=== PATIENT | male | born 1965 | race Caucasian/White ===

== ENCOUNTER 2023-04-18 13:26 | Emergency (ER) | payer OTHER, SELFPAY ==
[2023-04-18 13:37] VITALS: BP 123/76; PULSE 86; RESP 18; TEMP 36.3; O2SAT 97
--- NOTE | 2023-04-18 13:45 | ED.GENADULT ---
HPI - General Adult General Chief complaint: Weakness Stated complaint: Nausea/Fatigue Source: patient and RN notes reviewed History of Present Illness HPI narrative: 58 yo M presents to urgent care with complaints of nausea and fatigue x 3 days. Pt states his wanted him to come get his heart checked. Denies any fevers, chills, chest pain, SOB, vomiting, diarrhea, diaphoresis, cough, congestion, sore throat, or dizziness. Pt is still able to eat and drink. Patient states he had a negative COVID test yesterday. Related Data Home Medications Medication Instructions Recorded Confirmed atorvastatin 80 mg tablet 80 mg PO DAILY 04/18/23 04/18/23 carvedilol 12.5 mg tablet 12.5 mg PO BID 04/18/23 04/18/23 dulaglutide 3 mg/0.5 mL 3 mg subcut WEEKLY 04/18/23 04/18/23 subcutaneous pen injector (Trulicity) empagliflozin 25 mg tablet 25 mg PO DAILY 04/18/23 04/18/23 (Jardiance) ezetimibe 10 mg tablet (Zetia) 10 mg PO DAILY 04/18/23 04/18/23 finerenone 20 mg tablet (Kerendia) 20 mg PO DAILY 04/18/23 04/18/23 icosapent ethyl 1 gram capsule 2 g PO BID 04/18/23 04/18/23 irbesartan 300 mg tablet 300 mg PO DAILY 04/18/23 04/18/23 metformin 1,000 mg tablet 1,000 mg PO BID 04/18/23 04/18/23 rivaroxaban 2.5 mg tablet (Xarelto) 2.5 mg PO BID 04/18/23 04/18/23 tadalafil 20 mg tablet 20 mg PO PRN PRN Sexual Activity 04/18/23 04/18/23 Allergies Allergy/AdvReac Type Severity Reaction Status Date / Time No Known Allergies Allergy Verified 04/18/23 13:43 Review of Systems Review of Systems: Pertinent positives and pertinent negatives per HPI. PMFSH Comments At the time of my signature, I reviewed and agree with the nursing past medical, surgical, social, and family history. There is no relevant family history pertinent to the patient complaint. Exam Narrative: GENERAL: This is a well-nourished, well-developed patient, in no apparent distress. HEAD: normocephalic, atraumatic. EYES: Sclera clear/white. Vision is grossly intact. EARS: External ears normal, auditory canals clear and without drainage, TMs normal without perforation. Hearing grossly intact. NOSE: External nose normal with no obvious nasal discharge, nares without redness, no rhinorrhea. THROAT: Mucous membranes moist, posterior pharynx clear. NECK: Neck supple, non-tender without lymphadenopathy, masses or thyromegaly. CARDIOVASCULAR: Regular rate and rhythm without murmurs, gallops, or rubs. RESPIRATORY: Clear to auscultation. Breath sounds equal bilaterally. No wheezes, rales, or rhonchi. GASTROINTESTINAL: Abdomen soft, non-tender, nondistended. Bowel sounds are active. No hepato-splenomegaly, or palpable masses. No guarding. SKIN: warm, intact with no suspicious lesions or rash, good texture and turgor. NEURO: awake, alert, and oriented to person, place and time. There were no obvious focal neurologic abnormalities. Course Course Level of Care: Express Care Visit Vital Signs Vital signs: Vital Signs Oxygen Delivery Room Air 04/18/23 13:35 Temperature 97.3 F L 04/18/23 13:37 Pulse Rate 86 04/18/23 13:37 Respiratory Rate 18 04/18/23 13:37 Blood Pressure 123/76 04/18/23 13:37 Pulse Oximetry 97 04/18/23 13:37 Oxygen Delivery Room Air 04/18/23 13:37 Reviewed. Medical Decision Making MDM Narrative Medical decision making narrative: Viral illness may last between 7-21 days; antibiotics do not cure viral illness and are NOT recommended at this time. Also, recommend symptomatic treatment includes: rest, fluids, and increase humidity of the air at home. Recommend Acetaminophen as directed on the bottle to reduce fever, pain, headache. Please schedule a follow-up visit with your personal physician for further evaluation and treatment within 3-5days. If your symptoms persist, change or worsen significantly before you can contact your personal physician then please, without delay, go to the emergency department for further evaluat
--- NOTE | 2023-04-18 13:50 | ECG_ITS ---
Measurements Intervals [place] Rate: 85 P: 19 VT: 155 QRS: 13 QRSD: 89 T: 36 QT: 337 QTc: 402 Interpretive Statements SINUS RHYTHM MINIMAL Q WAVES- INFERIOR LEADS BASELINE ARTIFACT- I, II, AVR, AVL, AVF, V1 BORDERLINE ECG NO PREVIOUS ECG AVAILABLE FOR COMPARISON Electronically Signed On 04-19-2023 6:19:39 [employer]INTING SPECIALIST by Evan Thomas D.O.
[2023-04-18 14:06] LABS: Glucose Point of Care 249 mg/dl (65-105)
== END 2023-04-18 14:30 | disposition home or self-care (01) ==
PROVIDERS: Emergency Provider Nurse Practitioner Family; PCP Family Medicine
DX: B34.9 Viral infection, unspecified (principal); E78.00 Pure hypercholesterolemia, unspecified; I10 Essential (primary) hypertension; E11.9 Type 2 diabetes mellitus without complications; Z79.84 Long term (current) use of oral hypoglycemic drugs; Z95.5 Presence of coronary angioplasty implant and graft; Z79.01 Long term (current) use of anticoagulants
CPT/HCPCS: 82948; 87804; 93005; 99213; G0463

== ENCOUNTER 2023-06-14 09:59 | Emergency (ER) | payer OTHER, SELFPAY ==
[2023-06-14 10:04] VITALS: BP 149/76; PULSE 75; RESP 16; TEMP 36.2; O2SAT 98
--- NOTE | 2023-06-14 10:09 | ED.GENADULT ---
HPI - General Adult General Chief complaint: Nausea/Vomiting/Diarrhea Stated complaint: diarrhea/upset stomach Time Seen by Provider: 06/14/23 10:09 Source: patient Mode of arrival: ambulatory Limitations: no limitations History of Present Illness HPI narrative: 58 yo M presents with c/o sulfur burps for the past 3 days and previously 1 month ago. Was seen for it a month ago and states they didn't do anything for it . Started trulicity 1 month ago and also taking fishoil twice a day consistently for past month. Did think maybe symptoms were from trulicity but wanted to come in and talk to someone about it. Denies N/V. having normal BMs. had hamburger helper for dinner last night. All systems reveiewed and negative except as noted above. Related Data Home Medications Medication Instructions Recorded Confirmed atorvastatin 80 mg tablet 80 mg PO DAILY 04/18/23 06/14/23 carvedilol 12.5 mg tablet 12.5 mg PO BID 04/18/23 06/14/23 dulaglutide 3 mg/0.5 mL 3 mg subcut WEEKLY 04/18/23 06/14/23 subcutaneous pen injector (Trulicity) empagliflozin 25 mg tablet 25 mg PO DAILY 04/18/23 06/14/23 (Jardiance) ezetimibe 10 mg tablet (Zetia) 10 mg PO DAILY 04/18/23 06/14/23 icosapent ethyl 1 gram capsule 2 g PO BID 04/18/23 06/14/23 irbesartan 300 mg tablet 300 mg PO DAILY 04/18/23 06/14/23 metformin 1,000 mg tablet 1,000 mg PO BID 04/18/23 06/14/23 rivaroxaban 2.5 mg tablet (Xarelto) 2.5 mg PO BID 04/18/23 06/14/23 tadalafil 20 mg tablet 20 mg PO PRN PRN Sexual Activity 04/18/23 06/14/23 Allergies Allergy/AdvReac Type Severity Reaction Status Date / Time No Known Allergies Allergy Verified 04/18/23 13:43 Review of Systems Review of Systems: CONSTITUTIONAL: Denies fever, chills, or sweats. EYES: Denies visual changes, redness, or discharge. ENT: Denies rhinorrhea, congestion, sore throat, or otalgia. CARDIOVASCULAR: Denies chest pain, palpitations, or edema. RESPIRATORY: Denies cough or dyspnea. GASTROINTESTINAL: Denies abdominal pain, nausea, vomiting, or diarrhea. Reports sulfur burps. GENITOURINARY: Denies dysuria or hematuria. SKIN: Denies rash or itching. MUSCULOSKELETAL: Denies back pain, joint pain, or myalgia. NEUROLOGIC: Denies headache, numbness, or weakness. PSYCHIATRIC: Denies anxiety or depression. All other systems reviewed are negative, except as documented in HPI. PMFSH Comments At time of signature, agree with nursing past medical, surgical, social and family history. There is no relevant family history pertinent to the presenting complaint. Exam Narrative: GENERAL: This is a well-nourished, well-developed patient, in no apparent distress. HEAD: normocephalic, atraumatic. EYES: PERRL. Sclera clear/white. Vision is grossly intact. EARS: External ears normal NOSE: External nose normal NECK: Neck supple, non-tender without lymphadenopathy, masses or thyromegaly. CARDIOVASCULAR: Regular rate and rhythm without murmurs, gallops, or rubs. RESPIRATORY: Clear to auscultation. Breath sounds equal bilaterally. No wheezes, rales, or rhonchi. GASTROINTESTINAL: Abdomen soft, non-tender, nondistended. Bowel sounds are active. No hepato-splenomegaly, or palpable masses. No guarding. SKIN: warm, Dry, intact with no suspicious lesions or rash, good texture and turgor. NEURO: awake, alert, and oriented to person, place and time. There were no obvious focal neurologic abnormalities. EXTREMITIES: No joint tenderness, effusion, or edema noted. Course Course Level of Care: Express Care Visit Vital Signs Vital signs: Vital Signs Temperature 36.2 C L 06/14/23 10:04 Pulse Rate 75 06/14/23 10:04 Respiratory Rate 16 06/14/23 10:04 Blood Pressure 149/76 H 06/14/23 10:04 Pulse Oximetry 98 06/14/23 10:04 Oxygen Delivery Room Air 06/14/23 10:04 Temperature 36.2 C L 06/14/23 10:04 Pulse Rate 75 06/14/23 10:04 Respiratory Rate 16 06/14/23 10:04 Blood Pressure 149/76 H 06/14/23 10:
[2023-06-14 10:15] VITALS: BP 149/76; PULSE 75; RESP 16; TEMP 36.2; O2SAT 98
== END 2023-06-14 10:27 | disposition home or self-care (01) ==
PROVIDERS: Emergency Provider Nurse Practitioner Family; PCP Family Medicine
DX: K30 Functional dyspepsia (principal); T50.995A Adverse effect of other drugs, medicaments and biological substances, initial encounter; Z79.899 Other long term (current) drug therapy; Z79.01 Long term (current) use of anticoagulants; Z79.84 Long term (current) use of oral hypoglycemic drugs
CPT/HCPCS: 99213; G0463